=== PATIENT | female | born 1940 | race Caucasian/White ===

== ENCOUNTER 2016-06-11 05:55 | Inpatient (IN) | payer OTHER ==
--- NOTE | 2016-06-10 09:56 | HP ---
Satellite [facility] - Chief Complaint Chief Complaint: right knee pain - Past Medical History Allergies/Adverse Reactions: Allergies Allergy/AdvReac Type Severity Reaction Status Date / Time cephalexin monohydrate AdvReac Severe Hives Verified 06/03/16 10:20 [From Keflex] hydromorphone HCl AdvReac Severe Vomiting Verified 06/03/16 10:20 [From Dilaudid] - Current Medications Current Medications: Home Medications Medication Instructions Recorded Letrozole [Femara] 2.5 mg PO HS 04/22/15 Metformin HCl [Glucophage -] 500 mg PO BID 04/22/15 Warfarin Sodium [Coumadin] 5 mg PO HS 04/22/15 Furosemide 10 mg PO Q48H 06/03/16 Meclizine HCl 25 mg PO DAILY PRN 06/03/16 Metoprolol Succinate [Toprol Xl] 50 mg PO BID 06/03/16 Satellite Physical Exam - Physical Examination General Appearance: Well Nourished, Well Developed, Alert & Oriented x3 ENT: Clear Lung: Normal air movement Heart: Regular rate & rhythm Extremities: Other (right knee- + swelling, + ttp, decr rom, nvi xrays show severe tricompartmental djd) Neurological: Intact, Alert, Oriented Satellite Impression/Plan - Impression/Plan Impression: right knee djd Operative Procedure: right kareem tkr Date to be Performed: 06/11/16
[2016-06-11] MEDS ORDERED: TRANEXAMIC ACID 1000 MG/10 ML VIAL IVPUSH ONE (06:25)
[2016-06-11] MEDS ORDERED: GABAPENTIN 300 MG CAPSULE (FP) PO ONE (06:25)
[2016-06-11] MEDS ORDERED: CELECOXIB 200 MG CAPSULE PO ONE (06:25)
[2016-06-11] MEDS ORDERED: CEFAZOLIN 2 GM in DEXTROSE 5%-WATER - 50 ML IVPB ONE (06:25)
[2016-06-11] MEDS ORDERED: VANCOMYCIN 1,000 MG VIAL (RESTRICTED TO ID ONLY) ONE ×2 (07:02→07:33)
[2016-06-11 07:11] VITALS: BMI 36.6
[2016-06-11] MEDS ORDERED: DEXAMETHASONE SOD PHOSPHATE/PF 10 MG/ML SDV ONE (07:27)
[2016-06-11] MEDS ORDERED: MIDAZOLAM HCL 2 MG/2 ML SINGLE DOSE VIAL ONE (07:27)
[2016-06-11] MEDS ORDERED: ROPIVACAINE HCL 0.5% 30ML VIAL ONE (07:28)
[2016-06-11] MEDS ORDERED: SODIUM CHLORIDE 0.9% P/F 10 ML VIAL IJ ONE (07:28)
[2016-06-11] MEDS ORDERED: ePHEDrine SULFATE 50 MG/1 ML AMPULE ONE (07:57)
[2016-06-11] MEDS ORDERED: PROPOFOL 20 ML ONE ×5 (07:57)
[2016-06-11] MEDS ORDERED: SUCCINYLCHOLINE CHLORIDE 200 MG/10 ML VIAL ONE (07:58)
[2016-06-11] MEDS ORDERED: BUPIVACAINE HCL/PF 0.5% (5MG/ML) 10 ML VIAL ONE (08:03)
[2016-06-11 08:12] LABS: INR 1.12 (0.82-1.09); PROTHROMBIN TIME (PATIENT) 12.5 SEC (10.2-13.0)
[2016-06-11] MEDS ORDERED: ROPIVACAINE 0.2% 400ML 400 ML ML NR ONE (09:01)
[2016-06-11] MEDS ORDERED: oxyCODONE HCL 5 MG TABLET PO PRN (09:01)
[2016-06-11] MEDS ORDERED: ONDANSETRON 4 MG/2 ML VIAL IVPUSH PRN (09:01)
[2016-06-11] MEDS ORDERED: VANCOMYCIN 1,000 MG VIAL (RESTRICTED TO ID ONLY) IVPB ONE (09:53)
[2016-06-11] MEDS ORDERED: MECLIZINE HCL 25 MG TABLET (FP) PO PRN (10:39)
--- NOTE | 2016-06-11 10:43 | OP ---
Operative Note - Note: Operative Date: 06/11/16 (adam) Pre-Operative Diagnosis: right knee djd Operation: right kareem tkr Post-Operative Diagnosis: Same as Pre-op Surgeon: Efrain Shahid Cutter Apprentice Hand: Modesto Blair Anesthesiologist/HOSPITAL MEDICINE DIRECTOR: Pramod Allen Anesthesia: Spinal, Local Specimens Removed: bone fragments Estimated Blood Loss (mls): 50 (tourniquet) Operative Report Dictated: Yes
[2016-06-11] MEDS ORDERED: LACTATED RINGERS SOLUTION 1,000 ML IV SCH (10:45)
[2016-06-11] MEDS ORDERED: ACETAMINOPHEN 325 MG TABLET (FP) ONE (11:51)
[2016-06-11] MEDS: ACETAMINOPHEN 325 MG TABLET (FP) PO SCH ×3 (11:55→20:54)
[2016-06-11] MEDS ORDERED: FUROSEMIDE 20 MG TABLET (FP) PO SCH (12:00)
--- NOTE | 2016-06-11 13:45 | SPEC ---
DATE OF SURGERY: 06/11/2016 OPERATION: Right total knee replacement with robotic-assisted navigation (MAKOplasty). PREOPERATIVE DIAGNOSIS: Degenerative joint disease, right knee. POSTOPERATIVE DIAGNOSIS: Degenerative joint disease, right knee. SURGEON: Efrain Shahid M.D. FACILITY MAINTENANCE SUPERVISOR: Yamilet Patel ANESTHESIA: Regional and spinal. CLOSURE: A Triathlon knee system with a 6 femur, a 5 tibia, a 16 polyethylene, a 32 patella. A number 1 Vicryl fascia, 0 and 2-0 for subcutaneous, 3-0 Monocryl subcuticular with skin glue for skin, 4-0 undyed Vicryl for pin sites. ESTIMATED BLOOD LOSS: Negligible. TOURNIQUET TIME: Approximately 90 minutes. COMPLICATIONS: None CONDITION: To recovery room in stable condition. DESCRIPTION OF PROCEDURE: Patient was taken to the operating room June 11, 2016. Regional and spinal anesthesia were administered by the anesthesiologist. IV antibiotics and TXA were administered prophylactically prior to the case. A well-padded pneumatic tourniquet was placed on the right proximal thigh. The right lower extremity was prepped and draped in the usual sterile fashion. An approximately 12-cm midline incision centered over the patella was incised. Hemostasis was achieved with Bovie cautery. Sharp dissection was carried down to the level of the extensor mechanism the procedure. A medial parapatellar arthrotomy was then performed. The patella was inverted and the knee was flexed up to 90 degrees. Subperiosteal dissection was performed on the anteromedial proximal tibia until the knee was able to be brought forward. This was facilitated by taking the ACL, the PCL, and the medial and lateral menisci. A checkpoint was malleted into the medial femoral condyle and into the anteromedial proximal tibia. Through 2two small stab incisions in the mid femur and 2two in the mid tibia, 2two bicortical pins were drilled, achieving excellent height. Two of these pins were attached to the navigation arrays. The knee was then registered with the navigation device by rotating the hip to ascertain the center of rotation of the hip with points on both the medial and lateral malleoli and multiple points on both the femur and on the tibia. Excellent registration was confirmed by "popping the bubbles.". At this time, the osteophytes on the edges of the proximal tibia both medially and laterally, as well as on the medial lateral femoral condyles underneath the collateral ligaments were debrided. The knee was stressed in extension and in flexion to confirm good gaps. The virtual positions of the components were then optimized in order to have a balanced knee, both in extension and in 90 degrees of flexion. The sizes of the components were also optimized to get good coverage over both the tibia and the femur and to produce equal gaps in extension and flexion with the appropriate amount of external rotation of the femur, the appropriate amount of flexion of the femoral component and the appropriate slope on the tibial component. At this time, the robot was brought into the field and registered. The robot was used to cut the proximal tibia and to make all the cuts on the distal femur. The bone was then removed. A spacer block in extension and flexion was used to confirm equal balancing of the component in both extension and 90 degrees of flexion. The box for the posterior cruciate sacrificing component was then performed and a trial component on the femur and tibia was applied. The femoral component was clipped into place with the appropriate external rotation. This was confirmed by the navigation device, ensuring the appropriate position of the tibial component on the proximal tibia. The patella was calipered for thickness and osteotomized at the appropriate level. A lollipop was used to drill the three lugholes in the patella and then a trial component was applied. The knee was taken through a range of motion and found to have excellent tracking of the patella from full extension to full flexion, with good stability, varus/valgus throughout range of motion. The trial components were then removed. Before removing the tibial tray, the keyhole was made. The knee was then thoroughly irrigated with antibiotic irrigation. The real components were then cemented in, using modern generation cement techniques with antibiotic cement and pressurization. After the cement was hardened, the knee was thoroughly inspected to remove all excess cement. The real polyethylene component was then clipped into place. Again, range of motion, stability and tracking were found to be excellent throughout. The knee was then pulse antibiotic irrigated and dried. Vancomycin powder was placed into the knee. The checkpoints were removed. The medial parapatellar arthrotomy was then closed using number 1 Vicryl interrupted suture. The knee was again taken through range of motion and found to have no undue tension on the repair and good tracking throughout. The subcutaneous was closed with 0 and 2-0 Vicryl and 3-0 Monocryl subcuticular for skin with skin glue. The pins were removed in the femur and the tibia and pulse antibiotic irrigated and closed with 4-0 undyed Vicryl. Sterile Aquacel dressing followed by a Decker dressing was applied. The tourniquet was then deflated. One more dose of TXA was administered at the end of the case. The patient was awakened from anesthesia and transferred to the recovery room in stable condition. X-rays revealed good position of the components. There were no complications. Estimated blood loss was negligible. Total tourniquet time was approximately 90 minutes. Celine TUBBS/[id number]
[2016-06-11] MEDS: oxyCODONE HCL 5 MG TABLET PO PRN ×2 (14:16→18:30)
[2016-06-11] MEDS: GABAPENTIN 300 MG CAPSULE (FP) PO SCH ×2 (16:46→22:09)
[2016-06-11] MEDS: oxyCODONE HCL 10 MG SUSTAINED ACTING TABLET PO SCH ×2 (16:46→22:12)
[2016-06-11] MEDS: metFORMIN HCL 500 MG TABLET (FP) PO SCH (16:56)
[2016-06-11] MEDS ORDERED: INSULIN (NOVOLOG) ASPART 100 UNITS/ML 10ML VIAL ONE (17:01)
[2016-06-11] MEDS: INSULIN SLIDING SCALE (NOVOLOG) 1 VIAL SQ SCH ×2 (17:02→22:19)
[2016-06-11] MEDS: WARFARIN NA 5 MG TABLET (UD) PO SCH (18:31)
[2016-06-11] MEDS ORDERED: oxyCODONE HCL 5 MG TABLET PO ONE (19:30)
[2016-06-11] MEDS ORDERED: VANCOMYCIN 1,500 MG in DEXTROSE 5%-WATER - 500 ML IVPB ONE (20:00)
[2016-06-11] MEDS ORDERED: DEXAMETHASONE SOD PHOSPHATE 4 MG/1 ML VIAL IVPUSH PRN (21:14)
[2016-06-11] MEDS ORDERED: morphine SULFATE/PF 30 MG/30 ML *PCA* DISP.SYRIN PCA SCH (21:15)
[2016-06-11] MEDS: METOPROLOL SUCCINATE 50 MG TAB.SR.24H (FP) PO SCH (22:09)
[2016-06-11] MEDS: LETROZOLE 2.5 MG TABLET (FP) PO SCH (22:09)
[2016-06-11] MEDS: SENNOSIDES/DOCUSATE COMBO (SENNA PLUS) TABLET (UD) PO SCH (22:09)
[2016-06-12] MEDS: ACETAMINOPHEN 325 MG TABLET (FP) PO SCH ×4 (03:12→20:56)
[2016-06-12] MEDS: metFORMIN HCL 500 MG TABLET (FP) PO SCH ×2 (06:52→16:20)
[2016-06-12] MEDS: INSULIN SLIDING SCALE (NOVOLOG) 1 VIAL SQ SCH ×5 (06:53→21:16)
[2016-06-12] MEDS: LACTATED RINGERS SOLUTION 1,000 ML IV SCH ×2 (07:15→09:17)
--- NOTE | 2016-06-12 08:01 | PN ---
Progress Note (short form) - Note Progress Note: Ortho Pt seen and examined s/p right kareem tkr pod #1 Selected Entries 06/12/16 06:00 Temperature 97.4 F L Pulse Rate 70 Respiratory 20 Rate Blood Pressure 143/70 dressing c/d/i, calf soft, nt rom 0-30, nvi a/p PT dvt ppx pain control d/c home tomorrow if stable
[2016-06-12] MEDS: ASPIRIN 325 MG TABLET PO SCH ×2 (08:12→09:20)
[2016-06-12 08:41] LABS: MCH 30.4 pg (25.7-33.7); MCHC 34.2 g/dl (32.0-36.0); MEAN CELL VOLUME 88.9 fl (80-96); MEAN PLT VOLUME 8.5 fl (7.5-11.1); WHITE BLOOD COUNT 8.9 K/mm3 (4.0-10.0)
[2016-06-12 08:58] LABS: PLATELET COUNT 187 K/MM3 (134-434)
[2016-06-12 08:59] LABS: CALCIUM 8.8 mg/dl (8.4-10.2); CREATININE 0.5 mg/dl (0.6-1.3)
[2016-06-12] MEDS: GABAPENTIN 300 MG CAPSULE (FP) PO SCH ×2 (09:16→21:16)
[2016-06-12] MEDS: PANTOPRAZOLE 40 MG TABLET (FP) PO SCH (09:17)
[2016-06-12] MEDS: METOPROLOL SUCCINATE 50 MG TAB.SR.24H (FP) PO SCH ×2 (09:18→21:16)
[2016-06-12] MEDS: SENNOSIDES/DOCUSATE COMBO (SENNA PLUS) TABLET (UD) PO SCH ×2 (09:18→21:16)
[2016-06-12] MEDS: oxyCODONE HCL 10 MG SUSTAINED ACTING TABLET PO SCH ×2 (09:19→21:17)
[2016-06-12] MEDS: MULTIVITAMINS (DAILY MVI) TABLET (FP) PO SCH (09:23)
[2016-06-12] MEDS ORDERED: FUROSEMIDE 20 MG TABLET (FP) PO SCH (10:00)
[2016-06-12] MEDS: ONDANSETRON 4 MG/2 ML VIAL IVPB PRN (10:10)
[2016-06-12] MEDS ORDERED: INSULIN (NOVOLOG) ASPART 100 UNITS/ML 10ML VIAL ONE ×2 (11:19→16:16)
[2016-06-12] MEDS ORDERED: oxyCODONE HCL 5 MG TABLET PO PRN (17:00)
[2016-06-12] MEDS: oxyCODONE HCL 5 MG TABLET PO PRN ×2 (17:28→22:16)
[2016-06-12] MEDS: WARFARIN NA 5 MG TABLET (UD) PO SCH (17:29)
[2016-06-12] MEDS ORDERED: WARFARIN NA 5 MG TABLET (UD) PO SCH (18:00)
[2016-06-12] MEDS: LETROZOLE 2.5 MG TABLET (FP) PO SCH (21:16)
[2016-06-13] MEDS: ACETAMINOPHEN 325 MG TABLET (FP) PO SCH ×2 (03:50→08:29)
[2016-06-13] MEDS: INSULIN SLIDING SCALE (NOVOLOG) 1 VIAL SQ SCH ×2 (06:59→11:44)
[2016-06-13] MEDS: metFORMIN HCL 500 MG TABLET (FP) PO SCH (06:59)
[2016-06-13 07:42] VITALS: BP 127/77; PULSE 85; TEMP 97.7
[2016-06-13] MEDS: ONDANSETRON 4 MG/2 ML VIAL IVPB PRN (07:43)
--- NOTE | 2016-06-13 07:55 | PN ---
Progress Note (short form) - Note Progress Note: Ortho Pt seen and examined s/p right kareem tkr pod #2, c/o nausea Selected Entries 06/13/16 07:41 Temperature 97.7 F Pulse Rate 85 Respiratory 18 Rate Blood Pressure 127/77 Laboratory Tests 06/12/16 07:53 WBC 8.9 Hgb 12.3 D Hct 35.9 D Plt Count 187 dressing c/d/i, calf soft, nt rom 0-30, nvi a/p PT dvt ppx pain control d/c home today if nausea controlled
--- NOTE | 2016-06-13 07:56 | DS ---
Physical Examination Vital Signs: Vital Signs Temperature 97.7 F 06/13/16 07:41 Pulse Rate 85 06/13/16 07:41 Respiratory Rate 18 06/13/16 07:41 Blood Pressure 127/77 06/13/16 07:41 O2 Sat by Pulse Oximetry (%) 96 06/13/16 07:41 Labs: CBC, BMP 06/12/16 07:53 06/12/16 07:53 Discharge Summary Reason For Visit: OSTEOARTHRITIS Procedures: Principal: right kareem tkr Hospital Course: admitted for elective right kareem tkr, uneventful post-op, stable for d/c Condition: Good - Instructions Diet, Activity, Other Instructions: Post-op Instructions-Total Knee Replacement Call the office for a follow-up appointment in 1 week - [phone] Aspirin 325mg daily for 6 weeks. Pain medication was sent into your pharmacy. Apply Graduated Compression Stockings (TEDs) to both lower extremities- remove daily for hygiene ONLY Apply Sequential Compression Device (SCDs) to both Lower extremities remove for PT and hygiene ONLY Apply cold packs to affected area for 15 minutes every 2 hours. Physical Therapist will come to your home for the first 5 days. You will be set up with outpatient PT at your first post-operative visit. Patient may ambulate as tolerated-encourage self care (at least every 2-3 hours while awake) with walker or cane Maintain Aquacel (waterproof) dressing to operative wound (will be removed by surgeon at first office visit) Shower with Aquacel dressing in place-if Aquacel integrity compromised, remove and apply dry sterile dressing and notify Orthopedist. DO NOT SHOWER unless Orthopedists approves without Aquacel dressing CONTACT THE OFFICE FOR ANY CHANGE IN YOUR CONDITION (for example-fever greater than 102 degrees,excessive bleeding from operative site, purulent drainage, severe swelling or pain) GO TO THE EMERGENCY ROOM IF THERE IS A MEDICAL EMERGENCY Knee Precautions: * Keep a rolled towel under affected heel while in bed or chair (to keep knee in extension) * Keep affected leg elevated except during mealtimes * DO NOT PLACE PILLOW UNDER AFFECTED KNEE * If you have any questions, please do not hesitate to call the office - . Referrals: Efrain Shahid MD [Staff Physician] - Disposition: VNS/HOME HEALTH CARE - Home Medications Comprehensive Discharge Medication List: Ambulatory Orders Letrozole [Femara] 2.5 mg PO HS 04/22/15 Metformin HCl [Glucophage -] 500 mg PO BID 04/22/15 Warfarin Sodium [Coumadin] 5 mg PO HS 04/22/15 Furosemide 10 mg PO Q48H 06/03/16 Meclizine HCl 25 mg PO DAILY PRN 06/03/16 Metoprolol Succinate [Toprol Xl] 50 mg PO BID 06/03/16 Oxycodone HCl/Acetaminophen [Percocet 5-325 mg Tablet -] 1 - 2 tab PO Q6H #50 tab MDD 8 06/11/16
[2016-06-13 08:19] LABS: MCH 30.6 pg (25.7-33.7); MEAN CELL VOLUME 90.2 fl (80-96); MEAN PLT VOLUME 8.6 fl (7.5-11.1); PLATELET COUNT 197 K/MM3 (134-434); RDW 12.9 % (11.6-15.6); WHITE BLOOD COUNT 10.6 K/mm3 (4.0-10.0)
[2016-06-13] MEDS: METOPROLOL SUCCINATE 50 MG TAB.SR.24H (FP) PO SCH (09:19)
[2016-06-13] MEDS: PANTOPRAZOLE 40 MG TABLET (FP) PO SCH (09:19)
[2016-06-13] MEDS: MULTIVITAMINS (DAILY MVI) TABLET (FP) PO SCH (09:19)
[2016-06-13] MEDS: GABAPENTIN 300 MG CAPSULE (FP) PO SCH (09:19)
[2016-06-13] MEDS: ASPIRIN 325 MG TABLET PO SCH (09:19)
[2016-06-13] MEDS: SENNOSIDES/DOCUSATE COMBO (SENNA PLUS) TABLET (UD) PO SCH (09:20)
[2016-06-13] MEDS: LACTATED RINGERS SOLUTION 1,000 ML IV SCH (09:26)
[2016-06-13] MEDS: oxyCODONE HCL 10 MG SUSTAINED ACTING TABLET PO SCH (09:26)
--- NOTE | 2016-06-13 10:32 | PN ---
Progress Note (short form) - Note Progress Note: S: pt. sitting in chair. c/o nausea. O: Vas 4-5/10 A/P: Pod#2 s/p right tkr with adductor canal catheter 1. PONV - continue with zofran, will d/c gabapentin. Narcotic have been stopped (pain controlled) 2. D/C planning per surgeon
--- NOTE | 2016-06-13 10:36 | PN ---
Progress Note (short form) - Note Progress Note: Addendum: Adductor canal cath pulled. tip intact. no complications
--- NOTE | 2016-08-20 16:09 | PATH ---
Surgical Pathology Report Patient Name: SOLEDAD CARPIO Med. Rec. #: [id number] /Age/Gender: 1940 (Age: 75) / F Account: [id number] Location: [facility] MED-SURG Taken: 06/11/2016 Received: 06/11/2016 Reported: 08/20/2016 Physicians: Efrain Shahid M.D. Specimen(s) Received RIGHT KNEE BONE Clinical History Right knee osteoarthritis Final Diagnosis KNEE, RIGHT, BONE AND TISSUE, TOTAL KNEE REPLACEMENT: DEGENERATIVE JOINT DISEASE. Electronically Signed Radha Vera M.D. Gross Description Received in formalin labeled "right knee bone and tissue," is an 11.5 x 10.0 x 2.0 cm aggregate of multiple irregular portions of bone and soft tissue. The tibial plateau measures 7.3 x 5.5 x 1.6 cm. There is a 2.3 cm in greatest dimension area of eburnation present. The remaining articular surfaces are krueger-yellow and focally granular. The underlying trabecular bone is yellow and hard. Fuse Spooler sections are submitted in one cassette, following decalcification. /06/12/201606/12/2016
== END 2016-06-13 12:40 | disposition home health service (06) | DRG 470 ==
LOC: FM/S 05:55
PROVIDERS: ADMIT Orthopaedic Surgery; ATTEND Orthopaedic Surgery
PROC: 8E0Y0CZ Robotic Assisted Procedure of Lower Extremity, Open Approach (ICD-10-PCS; 2016-06-11)
PROC: 0SRC0J9 Replacement of Right Knee Joint with Synthetic Substitute, Cemented, Open Approach (ICD-10-PCS; principal; 2016-06-11 08:55)
DX: M17.11 Unilateral primary osteoarthritis, right knee (principal); E11.9 Type 2 diabetes mellitus without complications; Z79.84 Long term (current) use of oral hypoglycemic drugs; I48.91 Unspecified atrial fibrillation; Z79.01 Long term (current) use of anticoagulants; H81.10 Benign paroxysmal vertigo, unspecified ear; Z85.3 Personal history of malignant neoplasm of breast
CPT/HCPCS: 36415; 73560-TC-RT; 80048; 85027; 85610; 88304-TC; 88311-TC; 94760; 97116-GP; 97162-PG

== ENCOUNTER 2017-03-12 10:32 | Emergency (ER) | payer OTHER ==
[2017-03-12 10:37] VITALS: BMI 35.7
--- NOTE | 2017-03-12 12:06 | PDOC ---
History of Present Illness - General History Source: Patient, Other (Records from Optho visit this morning) Exam Limitations: No Limitations - History of Present Illness Initial Comments: 03/12/17 12:54 The patient is a 76 year old female with a significant PMH of AFIB, diabetes, and hepatitis C who presents to the emergency department with double vision beginning at approximately 6PM yesterday. 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 She reports that her Opthamologist requested she be sent to the ED for a head CT to rule out other conditions or complications. The patient denies chest pain, shortness of breath, headache and dizziness. Denies fever, chills, nausea, vomit, diarrhea and constipation. Denies dysuria, frequency, urgency and hematuria. Allergies: Cephalexin monohydrate, Hydromorphone HCl Past surgical history: None reported. Social history: Current some day smoker. No reported alcohol or drug use. PCP: Dr. Forrester Opthamologist: Dr. July Butler <Rodo Duvall - Last Filed: 03/12/17 12:54> <Jones Reyes - Last Filed: 03/12/17 14:05> - General Chief Complaint: Eye Problem Stated Complaint: EYE COMPLICATION (PCP SENT) Time Seen by Provider: 03/12/17 12:03 Past History <Rodo Duvall - Last Filed: 03/12/17 12:54> - Past Medical History Anemia: No Asthma: No Cancer: Yes (BREAST CA) Cardiac Disorders: Yes (a fib) CVA: No COPD: No CHF: No Dementia: No Diabetes: Yes Disorders: No (HX KIDNEY STONE-PASSED SELF) HTN: No Hypercholesterolemia: No Liver Disease: Yes (HEP C) Seizures: No Thyroid Disease: No - Surgical History Abdominal Surgery: Yes (UMBILICAL HERNIA REPAIR, MANY YEARS AGO) Appendectomy: No Cardiac Surgery: No Cholecystectomy: No Lung Surgery: No Neurologic Surgery: No Orthopedic Surgery: No - Suicide/Smoking/Psychosocial Hx Smoking History: Current some day smoker Have you smoked in the past 12 months: No Number of Cigarettes Smoked Daily: 2 If you are a former smoker, when did you quit?: 1 year Information on smoking cessation initiated: No Hx Alcohol Use: No Drug/Substance Use Hx: No Substance Use Type: None Hx Substance Use Treatment: No <Jones Reyes - Last Filed: 03/12/17 14:05> - Past Medical History Allergies/Adverse Reactions: Allergies Allergy/AdvReac Type Severity Reaction Status Date / Time cephalexin monohydrate AdvReac Severe Hives Verified 03/12/17 10:37 [From Keflex] hydromorphone HCl AdvReac Severe Vomiting Verified 03/12/17 10:37 [From Dilaudid] Home Medications: Ambulatory Orders Letrozole [Femara] 2.5 mg PO HS 04/22/15 Metformin HCl [Glucophage -] 500 mg PO BID 04/22/15 Warfarin Sodium [Coumadin] 5 mg PO HS 04/22/15 Meclizine HCl 25 mg PO DAILY PRN 06/03/16 Metoprolol Succinate [Toprol Xl] 50 mg PO BID 06/03/16 Tobramycin/Dexamethasone [Tobradex Eye Drops] 1 drop OD QID 03/12/17 Review of Systems - Review of Systems Able to Perform ROS?: Yes Comments:: 03/12/17 12:54 GENERAL/CONSTITUTIONAL: No fever or chills. No weakness. HEAD, EYES, EARS, NOSE AND THROAT: (+) Double vision. No ear pain or discharge. No sore throat. CARDIOVASCULAR: No chest pain or shortness of breath. RESPIRATORY: No cough, wheezing, or hemoptysis. GASTROINTESTINAL: No nausea, vomiting, diarrhea or constipation. GENITOURINARY: No dysuria, frequency, or change in urination. MUSCULOSKELETAL: No joint or muscle swelling or pain. No neck or back pain. SKIN: No rash NEUROLOGIC: No headache, vertigo, loss of consciousness, or change in strength. ENDOCRINE: No increased thirst. No abnormal weight change. HEMATOLOGIC/LYMPHATIC: No anemia, easy bleeding, or history of blood clots. ALLERGIC/IMMUNOLOGIC: No hives or skin allergy. <Rodo Duvall - Last Filed: 03/12/17 12:54> *Physical Exam - Vital Signs Last Vital Signs Temp Pulse Resp BP Pulse Ox 97.7 F 57 L 20 134/64 97 03/12/17 10:33 03/12/17 10:33 03/12/17 10:33 03/12/17 10:33 03/12/17 10:33 - Physical Exam Comments: 03/12/17 12:54 GENERAL: Awake, alert, and fully oriented, in no acute distress HEAD: No signs of trauma EYES: PERRLA, EOMI, sclera anicteric, conjunctiva clear ENT: Auricles normal inspection, hearing grossly normal, nares patent, oropharynx clear without exudates. Moist mucosa NECK: Normal ROM, supple, no lymphadenopathy, JVD, or masses LUNGS: Breath sounds equal, clear to auscultation bilaterally. No wheezes, and no crackles HEART: Regular rate and rhythm, normal S1 and S2, no murmurs, rubs or gallops ABDOMEN: Soft, nontender, normoactive bowel sounds. No guarding, no rebound. No masses EXTREMITIES: Normal range of motion, no edema. No clubbing or cyanosis. No cords, erythema, or tenderness NEUROLOGICAL: (+) Diplopia. Cranial nerves II-V and VII-XII grossly intact. Normal speech, normal gait SKIN: Warm, Dry, normal turgor, no rashes or lesions noted. <Rodo Duvall - Last Filed: 03/12/17 12:54> - Vital Signs Last Vital Signs Temp Pulse Resp BP Pulse Ox 97.7 F 57 L 20 134/64 97 03/12/17 10:33 03/12/17 10:33 03/12/17 10:33 03/12/17 10:33 03/12/17 10:33 <Jones Reyes - Last Filed: 03/12/17 14:05> *DC/Admit/Observation/Transfer - Attestations Scribe Attestion: 03/12/17 12:55 Documentation prepared by Rodo Duvall, acting as medical sales specialist for Jones Reyes DO. <Rodo Duvall - Last Filed: 03/12/17 12:54> - Attestations Physician Attestion: 03/12/17 12:04 I, Dr. Jones Reyes, attest that this document has been prepared under my direction and personally reviewed by me in its entirety. I further attest, that it accurately reflects all work, treatment, procedures and medical decision -making performed by me. <Jones Reyes - Last Filed: 03/12/17 14:05> Diagnosis at time of Disposition: Diplopia Sixth nerve palsy Qualifiers: Laterality: right Qualified Code(s): H49.21 - Sixth [abducent] nerve palsy, right eye - Discharge Dispostion Disposition: HOME Condition at time of disposition: Unchanged/Unknown - Referrals Referrals: Efrain Forrester MD [Primary Care Provider] - Angel Trent MD [Staff Physician] - - Patient Instructions Additional Instructions: Mrs Rothman- Your CT Scan was essentially normal and does not give us a reason for the sixth nerve palsy that is causing your double vision. Please follow up with Neurology. Return to us if worse or new symptoms occur. Follow your ophthalomologist's instructions. Best- Dr. Jones Reyes - Post Discharge Activity
--- NOTE | 2017-03-12 12:20 | PDOC ---
History of Present Illness - General Chief Complaint: Eye Problem Stated Complaint: EYE COMPLICATION (PCP SENT) Past History - Past Medical History Allergies/Adverse Reactions: Allergies Allergy/AdvReac Type Severity Reaction Status Date / Time cephalexin monohydrate AdvReac Severe Hives Verified 03/12/17 10:37 [From Keflex] hydromorphone HCl AdvReac Severe Vomiting Verified 03/12/17 10:37 [From Dilaudid] Home Medications: Ambulatory Orders Letrozole [Femara] 2.5 mg PO HS 04/22/15 Metformin HCl [Glucophage -] 500 mg PO BID 04/22/15 Warfarin Sodium [Coumadin] 5 mg PO HS 04/22/15 Furosemide 10 mg PO Q48H 06/03/16 Meclizine HCl 25 mg PO DAILY PRN 06/03/16 Metoprolol Succinate [Toprol Xl] 50 mg PO BID 06/03/16 Oxycodone HCl/Acetaminophen [Percocet 5-325 mg Tablet -] 1 - 2 tab PO Q6H #50 tab MDD 8 06/11/16 Anemia: No Asthma: No Cancer: Yes (BREAST CA) Cardiac Disorders: Yes (a fib) CVA: No COPD: No CHF: No Dementia: No Diabetes: Yes Disorders: No (HX KIDNEY STONE-PASSED SELF) HTN: No Hypercholesterolemia: No Liver Disease: Yes (HEP C) Seizures: No Thyroid Disease: No - Surgical History Abdominal Surgery: Yes (UMBILICAL HERNIA REPAIR, MANY YEARS AGO) Appendectomy: No Cardiac Surgery: No Cholecystectomy: No Lung Surgery: No Neurologic Surgery: No Orthopedic Surgery: No - Suicide/Smoking/Psychosocial Hx Smoking History: Current some day smoker Have you smoked in the past 12 months: No Number of Cigarettes Smoked Daily: 2 If you are a former smoker, when did you quit?: 1 year Information on smoking cessation initiated: No Hx Alcohol Use: No Drug/Substance Use Hx: No Substance Use Type: None Hx Substance Use Treatment: No *Physical Exam - Vital Signs Last Vital Signs Temp Pulse Resp BP Pulse Ox 97.7 F 57 L 20 134/64 97 03/12/17 10:33 03/12/17 10:33 03/12/17 10:33 03/12/17 10:33 03/12/17 10:33 *DC/Admit/Observation/Transfer - Referrals Referrals: Efrain Forrester MD [Primary Care Provider] - - Patient Instructions - Post Discharge Activity
[2017-03-12 14:09] VITALS: BP 111/65; PULSE 60; TEMP 97.8
== END 2017-03-12 14:19 | disposition home or self-care (01) ==
LOC: JER 10:32
DX: H49.21 Sixth [abducent] nerve palsy, right eye (principal); I48.91 Unspecified atrial fibrillation; E11.9 Type 2 diabetes mellitus without complications; B19.20 Unspecified viral hepatitis C without hepatic coma
CPT/HCPCS: 70450-TC; 99282-25

== ENCOUNTER 2021-08-14 14:34 | Inpatient (IN) | payer OTHER ==
[2021-08-14] MEDS ORDERED: ACETAMINOPHEN 1000 MG/100 ML BAG IVPB ONE (15:57)
[2021-08-14] MEDS ORDERED: SODIUM CHLORIDE 0.9% 500 ML INFUS.BAG IV ONE ×2 (15:57→17:31)
[2021-08-14] MEDS ORDERED: ACETAMINOPHEN INJECTION 100 ML IVPB ONE (16:00)
[2021-08-14 16:23] LABS: BASO % 0.9 % (0-2.0); HEMATOCRIT 44.7 % (32.4-45.2); HEMOGLOBIN 14.6 GM/dL (10.7-15.3); LYMPH % 6.7 % (8-40); MCH 29.6 pg (25.7-33.7); MCHC 32.6 g/dl (32.0-36.0); MEAN CELL VOLUME 90.6 fl (80-96); MEAN PLT VOLUME 7.4 fl (7.5-11.1); MONO % 9.4 % (3.8-10.2); PLATELET COUNT 580 10^3/uL (134-434); RBC 4.94 M/mm3 (3.60-5.2); RDW 14.2 % (11.6-15.6); WHITE BLOOD COUNT 17.6 K/mm3 (4.0-10.0)
[2021-08-14 16:28] LABS: VENOUS PCO2 37.3 mmHg (38-52); VENOUS PH 7.364 (7.310-7.410)
[2021-08-14 16:36] LABS: ACTIVATED PTT 41.6 SECONDS (25.2-36.5); INR 1.78 (0.83-1.09); PROTHROMBIN TIME (PATIENT) 20.6 SEC (9.7-13.0)
[2021-08-14 17:09] LABS: ALK PHOS 94 U/L (45-117); ANION GAP 14 MMOL/L (8-16); BILIRUBIN,TOTAL 2.8 mg/dL (0.2-1); CHLORIDE 99 mmol/L (98-107); CO2 20 mmol/L (21-32); GLUCOSE,RANDOM 338 mg/dL (74-106); LACTIC ACID 4.9 mmol/L (0.4-2.0); SGOT/AST 61 U/L (15-37); SGPT/ALT 36 U/L (13-61); SODIUM 133 mmol/L (136-145); TOT PROT 7.1 g/dl (6.4-8.2)
[2021-08-14 17:29] LABS: EPI CELLS 10 /uL (0-25.1); HYALINE CASTS 18 /uL (0-3.1); URINE APPEARANCE CLEAR; URINE BACTERIA 13 /uL (0-1359); URINE BILIRUBIN 1+ (NEGATIVE); URINE COLOR ORANGE; URINE GLUCOSE (UA) 3+ (NEGATIVE); URINE KETONE 1+ (NEGATIVE); URINE LEUK ESTERASE NEGATIVE (NEGATIVE); URINE NITRITE NEGATIVE (NEGATIVE); URINE PROTEIN 3+ (NEGATIVE); URINE RBC 11 /uL (0-23.9); URINE WBC 14 /uL (0-25.8)
[2021-08-14] MEDS ORDERED: LIDOCAINE 5% TOPICAL PATCH TP ONE (17:32)
[2021-08-14] MEDS ORDERED: LIDOCAINE 5% TOPICAL PATCH ONE (17:51)
[2021-08-14] MEDS ORDERED: morphine CARPU-JECT 4 MG/1 ML DISP.SYRIN IVPUSH ONE (18:04)
[2021-08-14] MEDS ORDERED: morphine SULFATE 4 MG/ML VIAL ONE ×2 (18:07→23:33)
[2021-08-14 19:34] LABS: LACTIC ACID 2.8 mmol/L (0.4-2.0)
[2021-08-14 19:36] LABS: CALCIUM 8.5 mg/dL (8.5-10.1)
[2021-08-14 19:37] LABS: BLOOD UREA NITROGEN 21.4 mg/dL (7-18)
[2021-08-14 19:40] LABS: CREATININE 0.7 mg/dL (0.55-1.3)
[2021-08-14] MEDS ORDERED: ENOXAPARIN NA (PORCINE) 40 MG/0.4 ML DISP.SYRIN SQ ONE (22:41)
[2021-08-14] MEDS ORDERED: ENOXAPARIN NA (PORCINE) 100 MG/1 ML DISP.SYRIN SQ ONE (23:33)
[2021-08-14] MEDS ORDERED: ENOXAPARIN NA (PORCINE) 30 MG/0.3 ML DISP.SYRIN SQ ONE (23:34)
[2021-08-14] MEDS ORDERED: morphine SULFATE 4 MG/ML VIAL IVPUSH ONE (23:45)
[2021-08-15] MEDS ORDERED: ACETAMINOPHEN 325 MG TABLET (FP) PO PRN (01:17)
[2021-08-15] MEDS: LIDOCAINE PATCH REMOVAL MC SCH ×2 (02:43→21:43)
[2021-08-15] MEDS: ATORVASTATIN CA 40 MG TABLET (FP) PO SCH ×2 (02:43→21:43)
[2021-08-15] MEDS: METOPROLOL TARTRATE 50 MG TABLET (FP) PO SCH ×3 (02:43→21:48)
[2021-08-15] MEDS: INSULIN SLIDING SCALE (NOVOLOG) 1 VIAL SQ SCH ×4 (06:24→21:48)
[2021-08-15 07:35] LABS: BASO % 0.7 % (0-2.0); EOS % 0.1 % (0-4.5); HEMATOCRIT 36.1 % (32.4-45.2); HEMOGLOBIN 12.1 GM/dL (10.7-15.3); LYMPH % 12.5 % (8-40); MCH 30.3 pg (25.7-33.7); MCHC 33.4 g/dl (32.0-36.0); MEAN CELL VOLUME 90.7 fl (80-96); MEAN PLT VOLUME 7.5 fl (7.5-11.1); MONO % 10.1 % (3.8-10.2); NEUT % 76.6 % (42.8-82.8); PLATELET COUNT 520 10^3/uL (134-434); RBC 3.98 M/mm3 (3.60-5.2); WHITE BLOOD COUNT 14.4 K/mm3 (4.0-10.0)
[2021-08-15 07:53] LABS: CHLORIDE 101 mmol/L (98-107); SODIUM 135 mmol/L (136-145)
[2021-08-15] MEDS ORDERED: HEPARIN NA (PORCINE) 5,000 UNITS/ML 1ML VIAL IVPUSH PRN ×2 (07:55)
[2021-08-15] MEDS ORDERED: HEPARIN INFUSION - 25,000 UNITS/500 ML INFUS.BAG IVPB SCH (08:00)
[2021-08-15 08:03] LABS: CALCIUM 8.8 mg/dL (8.5-10.1)
[2021-08-15 08:04] LABS: ALBUMIN 2.5 g/dl (3.4-5.0); ANION GAP 8 MMOL/L (8-16); BLOOD UREA NITROGEN 36.7 mg/dL (7-18); CO2 26 mmol/L (21-32); GLUCOSE,RANDOM 371 mg/dL (74-106); MAGNESIUM 2.3 mg/dL (1.8-2.4)
[2021-08-15 08:06] LABS: PHOSPHOROUS 2.8 mg/dL (2.5-4.9); SGOT/AST 24 U/L (15-37)
[2021-08-15 08:07] LABS: CHOLESTEROL 131 mg/dL (50-200); CREATININE 0.9 mg/dL (0.55-1.3); LDL CHOLESTEROL (ONLY SJRH) 77 mg/dL (5-100); SGPT/ALT 26 U/L (13-61); TRIGLYCERIDES 155 mg/dL (0-150)
[2021-08-15 08:08] LABS: BILIRUBIN,TOTAL 1.6 mg/dL (0.2-1); TOT PROT 5.6 g/dl (6.4-8.2)
[2021-08-15 08:09] LABS: ALK PHOS 70 U/L (45-117)
[2021-08-15 08:10] LABS: HDL CHOLESTEROL 30 mg/dL (40-60)
[2021-08-15 08:11] LABS: INR 1.67 (0.83-1.09); PROTHROMBIN TIME (PATIENT) 19.3 SEC (9.7-13.0)
[2021-08-15] MEDS ORDERED: AZTREONAM 2 GM in DEXTROSE 5%-WATER 100 ML IVPB ONE (08:15)
[2021-08-15] MEDS ORDERED: AZTREONAM 2 GM VIAL (RESTRICTED TO ID) ONE (08:39)
[2021-08-15] MEDS ORDERED: DEXTROSE 5%-WATER 100 ML IVPB ONE (08:40)
[2021-08-15] MEDS ORDERED: VANCOMYCIN PREMIX 1.5 GM 1,500 MG/300 ML BAG IVPB ONE (09:05)
[2021-08-15] MEDS ORDERED: AZTREONAM 2 GM in DEXTROSE 5%-WATER 100 ML IVPB SCH (10:00)
[2021-08-15] MEDS ORDERED: ENOXAPARIN NA (PORCINE) 80 MG/0.8 ML DISP.SYRIN SQ SCH (10:00)
[2021-08-15] MEDS ORDERED: AZTREONAM 1 GM VIAL (RESTRICTED TO ID) IVPB SCH (10:00)
[2021-08-15] MEDS ORDERED: ENOXAPARIN NA (PORCINE) 40 MG/0.4 ML DISP.SYRIN SQ SCH (10:00)
[2021-08-15] MEDS ORDERED: WARFARIN NA 5 MG TABLET PO SCH (18:00)
[2021-08-15] MEDS ORDERED: WARFARIN NA PO SCH (22:00)
[2021-08-15] MEDS: VANCOMYCIN/WATER 1250 MG 1,250 MG/250 ML BAG IVPB SCH (22:01)
[2021-08-15] MEDS: LETROZOLE 2.5 MG TABLET (FP) PO SCH (22:13)
[2021-08-16] MEDS ORDERED: morphine SULFATE 4 MG/ML VIAL IVPUSH ONE (04:58)
[2021-08-16] MEDS: INSULIN SLIDING SCALE (NOVOLOG) 1 VIAL SQ SCH ×4 (06:24→22:59)
[2021-08-16 07:51] LABS: CALCIUM 8.5 mg/dL (8.5-10.1)
[2021-08-16 07:52] LABS: ALBUMIN 2.4 g/dl (3.4-5.0); BLOOD UREA NITROGEN 39.3 mg/dL (7-18); CREATININE 0.7 mg/dL (0.55-1.3)
[2021-08-16 07:54] LABS: BILIRUBIN,TOTAL 1.1 mg/dL (0.2-1); TOT PROT 5.4 g/dl (6.4-8.2)
[2021-08-16] MEDS ORDERED: ENOXAPARIN NA (PORCINE) 80 MG/0.8 ML DISP.SYRIN SQ SCH (10:00)
[2021-08-16] MEDS: METOPROLOL TARTRATE 50 MG TABLET (FP) PO SCH ×2 (10:19→22:44)
[2021-08-16] MEDS: VANCOMYCIN/WATER 1250 MG 1,250 MG/250 ML BAG IVPB SCH ×2 (10:22→22:42)
[2021-08-16] MEDS: ATORVASTATIN CA 40 MG TABLET (FP) PO SCH (22:44)
[2021-08-16] MEDS: LETROZOLE 2.5 MG TABLET (FP) PO SCH (22:44)
[2021-08-16] MEDS: NYSTATIN POWDER 100,000 UNITS/GM - 15 GM TOPICAL POWDER TP SCH (22:45)
[2021-08-17] MEDS: INSULIN SLIDING SCALE (NOVOLOG) 1 VIAL SQ SCH ×4 (06:27→21:27)
[2021-08-17] MEDS: METOPROLOL TARTRATE 50 MG TABLET (FP) PO SCH ×2 (09:21→21:17)
[2021-08-17] MEDS: NYSTATIN POWDER 100,000 UNITS/GM - 15 GM TOPICAL POWDER TP SCH ×2 (09:22→21:17)
[2021-08-17 09:24] LABS: BASO % 0.7 % (0-2.0); EOS % 4.6 % (0-4.5); HEMATOCRIT 34.8 % (32.4-45.2); HEMOGLOBIN 11.3 GM/dL (10.7-15.3); LYMPH % 20.6 % (8-40); MCH 29.8 pg (25.7-33.7); MCHC 32.5 g/dl (32.0-36.0); MEAN CELL VOLUME 91.7 fl (80-96); MEAN PLT VOLUME 7.9 fl (7.5-11.1); MONO % 15.2 % (3.8-10.2); NEUT % 58.9 % (42.8-82.8); PLATELET COUNT 489 10^3/uL (134-434); RDW 14.1 % (11.6-15.6); WHITE BLOOD COUNT 11.9 K/mm3 (4.0-10.0)
[2021-08-17 09:48] LABS: ALBUMIN 2.3 g/dl (3.4-5.0); BLOOD UREA NITROGEN 27.4 mg/dL (7-18)
[2021-08-17 09:50] LABS: BILIRUBIN,TOTAL 1.3 mg/dL (0.2-1); CALCIUM 8.2 mg/dL (8.5-10.1); TOT PROT 5.4 g/dl (6.4-8.2)
[2021-08-17 09:51] LABS: CREATININE 0.5 mg/dL (0.55-1.3); MAGNESIUM 2.5 mg/dL (1.8-2.4)
[2021-08-17] MEDS: VANCOMYCIN/WATER 1250 MG 1,250 MG/250 ML BAG IVPB SCH ×2 (13:10→21:18)
[2021-08-17 14:03] LABS: HEMATOCRIT 33.5 % (32.4-45.2); HEMOGLOBIN 11.2 GM/dL (10.7-15.3); MCH 30.1 pg (25.7-33.7); MCHC 33.4 g/dl (32.0-36.0); MEAN CELL VOLUME 90.3 fl (80-96); MEAN PLT VOLUME 7.8 fl (7.5-11.1); PLATELET COUNT 481 10^3/uL (134-434); RBC 3.71 M/mm3 (3.60-5.2); RDW 14.1 % (11.6-15.6); WHITE BLOOD COUNT 10.7 K/mm3 (4.0-10.0)
[2021-08-17] MEDS: ATORVASTATIN CA 40 MG TABLET (FP) PO SCH (21:17)
[2021-08-17] MEDS: LETROZOLE 2.5 MG TABLET (FP) PO SCH (21:17)
[2021-08-18] MEDS: INSULIN SLIDING SCALE (NOVOLOG) 1 VIAL SQ SCH ×4 (06:28→22:23)
[2021-08-18 07:34] LABS: BASO % 0.5 % (0-2.0); EOS % 4.1 % (0-4.5); HEMATOCRIT 34.7 % (32.4-45.2); HEMOGLOBIN 11.8 GM/dL (10.7-15.3); LYMPH % 18.5 % (8-40); MCH 30.7 pg (25.7-33.7); MEAN CELL VOLUME 90.3 fl (80-96); MEAN PLT VOLUME 7.6 fl (7.5-11.1); MONO % 16.4 % (3.8-10.2); NEUT % 60.5 % (42.8-82.8); PLATELET COUNT 481 10^3/uL (134-434); RBC 3.84 M/mm3 (3.60-5.2); RDW 13.7 % (11.6-15.6); WHITE BLOOD COUNT 10.8 K/mm3 (4.0-10.0)
[2021-08-18 07:50] LABS: CALCIUM 8.3 mg/dL (8.5-10.1)
[2021-08-18 07:51] LABS: ALBUMIN 2.1 g/dl (3.4-5.0); BLOOD UREA NITROGEN 17.2 mg/dL (7-18); MAGNESIUM 2.2 mg/dL (1.8-2.4)
[2021-08-18 07:54] LABS: CREATININE 0.4 mg/dL (0.55-1.3)
[2021-08-18 07:55] LABS: BILIRUBIN,TOTAL 1.2 mg/dL (0.2-1); TOT PROT 5.2 g/dl (6.4-8.2)
[2021-08-18] MEDS: METOPROLOL TARTRATE 50 MG TABLET (FP) PO SCH ×2 (09:37→21:06)
[2021-08-18] MEDS: NYSTATIN POWDER 100,000 UNITS/GM - 15 GM TOPICAL POWDER TP SCH ×2 (09:37→22:23)
[2021-08-18] MEDS: VANCOMYCIN/WATER 1250 MG 1,250 MG/250 ML BAG IVPB SCH ×2 (09:37→21:07)
[2021-08-18] MEDS: ACETAMINOPHEN 1000 MG/100 ML BAG IVPB SCH ×2 (12:20→20:00)
[2021-08-18] MEDS: POLYETHYLENE GLYCOL (HEALTHYLAX) 3350 17 GM PACKET PO SCH (12:20)
[2021-08-18] MEDS: oxyCODONE HCL 10 MG SUSTAINED ACTING TABLET PO SCH ×2 (12:21→21:05)
[2021-08-18] MEDS: APIXABAN 5 MG TABLET PO SCH ×2 (13:29→21:10)
[2021-08-18] MEDS ORDERED: WARFARIN NA 7.5 MG TABLET PO ONE (18:00)
[2021-08-18] MEDS: ATORVASTATIN CA 40 MG TABLET (FP) PO SCH (21:06)
[2021-08-18] MEDS: LETROZOLE 2.5 MG TABLET (FP) PO SCH (21:10)
[2021-08-19] MEDS: ACETAMINOPHEN 1000 MG/100 ML BAG IVPB SCH (03:34)
[2021-08-19] MEDS: INSULIN SLIDING SCALE (NOVOLOG) 1 VIAL SQ SCH ×4 (06:03→23:42)
[2021-08-19 07:52] LABS: HEMOGLOBIN 11.9 GM/dL (10.7-15.3); MCH 30.8 pg (25.7-33.7); MEAN CELL VOLUME 90.6 fl (80-96); MEAN PLT VOLUME 7.6 fl (7.5-11.1); PLATELET COUNT 511 10^3/uL (134-434); RBC 3.87 M/mm3 (3.60-5.2); RDW 14.1 % (11.6-15.6); WHITE BLOOD COUNT 11.1 K/mm3 (4.0-10.0)
[2021-08-19 08:27] LABS: ALBUMIN 2.3 g/dl (3.4-5.0); CALCIUM 8.9 mg/dL (8.5-10.1)
[2021-08-19 08:28] LABS: BLOOD UREA NITROGEN 19.7 mg/dL (7-18)
[2021-08-19 08:30] LABS: CREATININE 0.5 mg/dL (0.55-1.3)
[2021-08-19 08:31] LABS: TOT PROT 5.6 g/dl (6.4-8.2)
[2021-08-19 08:32] LABS: BILIRUBIN,TOTAL 1.3 mg/dL (0.2-1)
[2021-08-19] MEDS: NYSTATIN POWDER 100,000 UNITS/GM - 15 GM TOPICAL POWDER TP SCH ×2 (09:38→22:30)
[2021-08-19] MEDS: oxyCODONE HCL 10 MG SUSTAINED ACTING TABLET PO SCH ×2 (09:38→22:28)
[2021-08-19] MEDS: METOPROLOL TARTRATE 50 MG TABLET (FP) PO SCH ×2 (09:39→22:30)
[2021-08-19] MEDS: POLYETHYLENE GLYCOL (HEALTHYLAX) 3350 17 GM PACKET PO SCH (09:39)
[2021-08-19] MEDS: APIXABAN 5 MG TABLET PO SCH ×2 (09:39→22:28)
[2021-08-19] MEDS: VANCOMYCIN/WATER 1250 MG 1,250 MG/250 ML BAG IVPB SCH ×2 (10:33→22:28)
[2021-08-19 10:57] LABS: ANISOCYTOSIS 0; HELMET CELLS 0; HOWELL-JOLLY BODIES 0; MACROCYTOSIS 0; OVALOCYTE 0; ROULEAU 0; SICKELED CELLS 0; TARGET CELLS 0; TEAR DROP CELLS 0; TOXIC GRANULATION 0
[2021-08-19] MEDS ORDERED: SODIUM ZIRCONIUM CYCLOSILICATE (LOKELMA) 5 GM PACKET PO ONE (11:15)
[2021-08-19] MEDS ORDERED: INSULIN (NOVOLOG) ASPART 100 UNITS/ML 10ML VIAL ONE (16:52)
[2021-08-19] MEDS ORDERED: WARFARIN NA 5 MG TABLET PO SCH (18:00)
[2021-08-19] MEDS: SENNOSIDES 8.6MG TABLET (FP) PO PRN (22:29)
[2021-08-19] MEDS: ATORVASTATIN CA 40 MG TABLET (FP) PO SCH (22:30)
[2021-08-19] MEDS: LETROZOLE 2.5 MG TABLET (FP) PO SCH (22:30)
[2021-08-20] MEDS: INSULIN SLIDING SCALE (NOVOLOG) 1 VIAL SQ SCH ×4 (05:59→21:39)
[2021-08-20 08:04] LABS: BLOOD UREA NITROGEN 17.9 mg/dL (7-18); CALCIUM 8.7 mg/dL (8.5-10.1)
[2021-08-20 08:05] LABS: ALBUMIN 2.3 g/dl (3.4-5.0)
[2021-08-20 08:07] LABS: CREATININE 0.5 mg/dL (0.55-1.3)
[2021-08-20 08:09] LABS: BILIRUBIN,TOTAL 1.9 mg/dL (0.2-1); TOT PROT 5.5 g/dl (6.4-8.2)
[2021-08-20 08:31] LABS: HEMATOCRIT 35.5 % (32.4-45.2); MCH 30.7 pg (25.7-33.7); MCHC 33.8 g/dl (32.0-36.0); MEAN CELL VOLUME 90.7 fl (80-96); MEAN PLT VOLUME 7.6 fl (7.5-11.1); PLATELET COUNT 566 10^3/uL (134-434); RBC 3.91 M/mm3 (3.60-5.2); RDW 14.1 % (11.6-15.6)
[2021-08-20] MEDS: APIXABAN 5 MG TABLET PO SCH (09:08)
[2021-08-20] MEDS: METOPROLOL TARTRATE 50 MG TABLET (FP) PO SCH ×2 (09:09→21:38)
[2021-08-20] MEDS: VANCOMYCIN/WATER 1250 MG 1,250 MG/250 ML BAG IVPB SCH ×2 (09:09→22:51)
[2021-08-20] MEDS: oxyCODONE HCL 10 MG SUSTAINED ACTING TABLET PO SCH ×2 (09:09→21:38)
[2021-08-20] MEDS: POLYETHYLENE GLYCOL (HEALTHYLAX) 3350 17 GM PACKET PO SCH (09:09)
[2021-08-20] MEDS: NYSTATIN POWDER 100,000 UNITS/GM - 15 GM TOPICAL POWDER TP SCH ×2 (09:10→21:40)
[2021-08-20 11:45] LABS: ANISOCYTOSIS 2+; MACROCYTOSIS 0; OVALOCYTE 1+
[2021-08-20] MEDS: ATORVASTATIN CA 40 MG TABLET (FP) PO SCH (21:38)
[2021-08-20] MEDS: LETROZOLE 2.5 MG TABLET (FP) PO SCH (21:39)
[2021-08-21] MEDS: INSULIN SLIDING SCALE (NOVOLOG) 1 VIAL SQ SCH ×4 (06:13→21:43)
[2021-08-21] MEDS ORDERED: DEXTROSE 50%-WATER - 25 GM/50 ML VIAL IVPUSH ONE (06:17)
[2021-08-21] MEDS: POLYETHYLENE GLYCOL (HEALTHYLAX) 3350 17 GM PACKET PO SCH (10:18)
[2021-08-21] MEDS: METOPROLOL TARTRATE 50 MG TABLET (FP) PO SCH ×2 (10:18→21:33)
[2021-08-21] MEDS: oxyCODONE HCL 10 MG SUSTAINED ACTING TABLET PO SCH ×2 (10:18→21:20)
[2021-08-21] MEDS: VANCOMYCIN/WATER 1250 MG 1,250 MG/250 ML BAG IVPB SCH ×2 (10:18→21:20)
[2021-08-21] MEDS: NYSTATIN POWDER 100,000 UNITS/GM - 15 GM TOPICAL POWDER TP SCH ×2 (10:19→21:34)
[2021-08-21 11:22] LABS: HEMATOCRIT 37.6 % (32.4-45.2); HEMOGLOBIN 12.1 GM/dL (10.7-15.3); MCH 29.3 pg (25.7-33.7); MCHC 32.3 g/dl (32.0-36.0); MEAN CELL VOLUME 90.8 fl (80-96); MEAN PLT VOLUME 7.8 fl (7.5-11.1); PLATELET COUNT 584 10^3/uL (134-434); RBC 4.14 M/mm3 (3.60-5.2); RDW 14.2 % (11.6-15.6); WHITE BLOOD COUNT 12.4 K/mm3 (4.0-10.0)
[2021-08-21 11:49] LABS: CALCIUM 8.5 mg/dL (8.5-10.1)
[2021-08-21 11:50] LABS: ALBUMIN 2.1 g/dl (3.4-5.0); BLOOD UREA NITROGEN 17.4 mg/dL (7-18)
[2021-08-21 11:58] LABS: CREATININE 0.5 mg/dL (0.55-1.3)
[2021-08-21 11:59] LABS: BILIRUBIN,TOTAL 1.2 mg/dL (0.2-1); TOT PROT 5.2 g/dl (6.4-8.2)
[2021-08-21] MEDS: ATORVASTATIN CA 40 MG TABLET (FP) PO SCH (21:20)
[2021-08-21] MEDS: SENNOSIDES 8.6MG TABLET (FP) PO PRN (21:20)
[2021-08-21] MEDS: LETROZOLE 2.5 MG TABLET (FP) PO SCH (21:33)
[2021-08-21 22:13] VITALS: BMI 59.9
[2021-08-22] MEDS: INSULIN SLIDING SCALE (NOVOLOG) 1 VIAL SQ SCH ×4 (06:28→21:23)
[2021-08-22 07:18] LABS: BASO % 0.7 % (0-2.0); EOS % 3.1 % (0-4.5); HEMATOCRIT 38.1 % (32.4-45.2); HEMOGLOBIN 12.7 GM/dL (10.7-15.3); LYMPH % 17.3 % (8-40); MCH 30.3 pg (25.7-33.7); MCHC 33.4 g/dl (32.0-36.0); MEAN CELL VOLUME 90.6 fl (80-96); MEAN PLT VOLUME 7.4 fl (7.5-11.1); MONO % 15.5 % (3.8-10.2); NEUT % 63.4 % (42.8-82.8); PLATELET COUNT 577 10^3/uL (134-434); RDW 13.9 % (11.6-15.6); WHITE BLOOD COUNT 11.9 K/mm3 (4.0-10.0)
[2021-08-22 07:56] LABS: CALCIUM 8.8 mg/dL (8.5-10.1)
[2021-08-22 07:57] LABS: ALBUMIN 2.1 g/dl (3.4-5.0); BLOOD UREA NITROGEN 18.1 mg/dL (7-18); MAGNESIUM 2.2 mg/dL (1.8-2.4)
[2021-08-22 08:00] LABS: CREATININE 0.5 mg/dL (0.55-1.3)
[2021-08-22 08:01] LABS: BILIRUBIN,TOTAL 1.5 mg/dL (0.2-1); TOT PROT 5.6 g/dl (6.4-8.2)
[2021-08-22] MEDS: VANCOMYCIN/WATER 1250 MG 1,250 MG/250 ML BAG IVPB SCH ×2 (09:00→21:16)
[2021-08-22] MEDS: METOPROLOL TARTRATE 50 MG TABLET (FP) PO SCH ×2 (09:00→21:16)
[2021-08-22] MEDS: POLYETHYLENE GLYCOL (HEALTHYLAX) 3350 17 GM PACKET PO SCH (09:00)
[2021-08-22] MEDS: oxyCODONE HCL 10 MG SUSTAINED ACTING TABLET PO SCH ×2 (09:00→21:16)
[2021-08-22] MEDS: AMINO ACIDS/PROTEIN HYDROLYS 30 ML LIQUID.PKT PO SCH (09:00)
[2021-08-22] MEDS: NYSTATIN POWDER 100,000 UNITS/GM - 15 GM TOPICAL POWDER TP SCH ×2 (09:02→21:17)
[2021-08-22] MEDS: ATORVASTATIN CA 40 MG TABLET (FP) PO SCH (21:16)
[2021-08-22] MEDS: LETROZOLE 2.5 MG TABLET (FP) PO SCH (21:23)
[2021-08-23] MEDS: INSULIN SLIDING SCALE (NOVOLOG) 1 VIAL SQ SCH ×4 (06:39→21:40)
[2021-08-23 07:47] LABS: CALCIUM 8.7 mg/dL (8.5-10.1)
[2021-08-23 07:48] LABS: ALBUMIN 2.1 g/dl (3.4-5.0); BLOOD UREA NITROGEN 19.9 mg/dL (7-18)
[2021-08-23 07:51] LABS: CREATININE 0.5 mg/dL (0.55-1.3)
[2021-08-23 07:52] LABS: BILIRUBIN,TOTAL 1.6 mg/dL (0.2-1)
[2021-08-23 07:55] LABS: TOT PROT 5.4 g/dl (6.4-8.2)
[2021-08-23 08:33] LABS: BASO % 1.2 % (0-2.0); EOS % 2.7 % (0-4.5); HEMATOCRIT 38.2 % (32.4-45.2); HEMOGLOBIN 12.8 GM/dL (10.7-15.3); LYMPH % 17.4 % (8-40); MCH 30.5 pg (25.7-33.7); MCHC 33.5 g/dl (32.0-36.0); MEAN CELL VOLUME 90.9 fl (80-96); MEAN PLT VOLUME 7.5 fl (7.5-11.1); MONO % 14.8 % (3.8-10.2); NEUT % 63.9 % (42.8-82.8); PLATELET COUNT 519 10^3/uL (134-434); WHITE BLOOD COUNT 11.4 K/mm3 (4.0-10.0)
[2021-08-23] MEDS: APIXABAN 5 MG TABLET PO SCH ×2 (09:46→21:28)
[2021-08-23] MEDS: AMINO ACIDS/PROTEIN HYDROLYS 30 ML LIQUID.PKT PO SCH (09:46)
[2021-08-23] MEDS: oxyCODONE HCL 10 MG SUSTAINED ACTING TABLET PO SCH ×2 (09:46→21:29)
[2021-08-23] MEDS: METOPROLOL TARTRATE 50 MG TABLET (FP) PO SCH ×2 (09:46→21:28)
[2021-08-23] MEDS: VANCOMYCIN/WATER 1250 MG 1,250 MG/250 ML BAG IVPB SCH ×2 (09:46→21:29)
[2021-08-23] MEDS: POLYETHYLENE GLYCOL (HEALTHYLAX) 3350 17 GM PACKET PO SCH (09:46)
[2021-08-23] MEDS: NYSTATIN POWDER 100,000 UNITS/GM - 15 GM TOPICAL POWDER TP SCH ×2 (09:47→21:29)
[2021-08-23 13:33] LABS: BILIRUBIN,DIRECT 0.8 mg/dL (0.0-0.2)
[2021-08-23] MEDS ORDERED: ACETAMINOPHEN 650 MG/20.3 ML ORAL SOLUTION (CUPS) PO SCH (14:00)
[2021-08-23] MEDS ORDERED: ACETAMINOPHEN 1000 MG/100 ML BAG IVPB SCH (14:00)
[2021-08-23] MEDS: ACETAMINOPHEN 500 MG TABLET (FP) PO SCH ×2 (15:43→21:28)
[2021-08-23] MEDS: ATORVASTATIN CA 40 MG TABLET (FP) PO SCH (21:28)
[2021-08-23] MEDS: LETROZOLE 2.5 MG TABLET (FP) PO SCH (21:29)
[2021-08-24] MEDS: ACETAMINOPHEN 500 MG TABLET (FP) PO SCH ×2 (03:16→09:07)
[2021-08-24] MEDS: INSULIN SLIDING SCALE (NOVOLOG) 1 VIAL SQ SCH (06:01)
[2021-08-24 07:51] VITALS: PULSE 73
[2021-08-24 08:14] LABS: BASO % 1.3 % (0-2.0); EOS % 1.5 % (0-4.5); HEMATOCRIT 37.8 % (32.4-45.2); HEMOGLOBIN 12.8 GM/dL (10.7-15.3); LYMPH % 14.4 % (8-40); MCH 30.6 pg (25.7-33.7); MCHC 33.8 g/dl (32.0-36.0); MEAN CELL VOLUME 90.7 fl (80-96); MONO % 14.1 % (3.8-10.2); NEUT % 68.7 % (42.8-82.8); PLATELET COUNT 569 10^3/uL (134-434); RBC 4.16 M/mm3 (3.60-5.2); RDW 14.2 % (11.6-15.6); WHITE BLOOD COUNT 10.8 K/mm3 (4.0-10.0)
[2021-08-24 08:33] LABS: BLOOD UREA NITROGEN 17.9 mg/dL (7-18); CALCIUM 8.8 mg/dL (8.5-10.1); MAGNESIUM 2.3 mg/dL (1.8-2.4)
[2021-08-24 08:35] LABS: CREATININE 0.4 mg/dL (0.55-1.3); PHOSPHOROUS 3.9 mg/dL (2.5-4.9)
[2021-08-24 08:37] LABS: BILIRUBIN,TOTAL 1.6 mg/dL (0.2-1); TOT PROT 5.6 g/dl (6.4-8.2)
[2021-08-24] MEDS: AMINO ACIDS/PROTEIN HYDROLYS 30 ML LIQUID.PKT PO SCH (09:07)
[2021-08-24 09:24] VITALS: BP 161/70; TEMP 97.8
[2021-08-24] MEDS: METOPROLOL TARTRATE 50 MG TABLET (FP) PO SCH (09:57)
[2021-08-24] MEDS: oxyCODONE HCL 10 MG SUSTAINED ACTING TABLET PO SCH (09:57)
[2021-08-24] MEDS: APIXABAN 5 MG TABLET PO SCH (09:59)
[2021-08-24] MEDS: POLYETHYLENE GLYCOL (HEALTHYLAX) 3350 17 GM PACKET PO SCH (10:00)
[2021-08-24] MEDS: VANCOMYCIN/WATER 1250 MG 1,250 MG/250 ML BAG IVPB SCH ×2 (10:00→10:12)
[2021-08-24] MEDS: NYSTATIN POWDER 100,000 UNITS/GM - 15 GM TOPICAL POWDER TP SCH (10:00)
[2021-08-24] MEDS ORDERED: LACTULOSE 20 GM/30 ML UDC (FOR ORAL USE ONLY) PO PRN (10:19)
[2021-08-24] MEDS ORDERED: SENNOSIDES 8.6MG TABLET (FP) PO SCH (10:30)
== END 2021-08-24 10:58 | disposition short-term general hospital (02) | DRG 183 ==
LOC: JER 14:34 → JERBED 22:47 → J4W 08-15 02:27
PROVIDERS: ADMIT Internal Medicine; ATTEND Internal Medicine
DX: S22.42XA Multiple fractures of ribs, left side, initial encounter for closed fracture (principal); A41.81 Sepsis due to Enterococcus; R65.20 Severe sepsis without septic shock; S42.292A Other displaced fracture of upper end of left humerus, initial encounter for closed fracture; S42.291A Other displaced fracture of upper end of right humerus, initial encounter for closed fracture; I50.32 Chronic diastolic (congestive) heart failure; I82.401 Acute embolism and thrombosis of unspecified deep veins of right lower extremity; N17.9 Acute kidney failure, unspecified; E87.2 Acidosis; I24.8 Other forms of acute ischemic heart disease; Z68.43 Body mass index [BMI] 50.0-59.9, adult; E66.01 Morbid (severe) obesity due to excess calories; W19.XXXA Unspecified fall, initial encounter; Y93.9 Activity, unspecified; Y92.89 Other specified places as the place of occurrence of the external cause; Y99.9 Unspecified external cause status; I10 Essential (primary) hypertension; K59.00 Constipation, unspecified; I48.91 Unspecified atrial fibrillation; E78.5 Hyperlipidemia, unspecified; E11.65 Type 2 diabetes mellitus with hyperglycemia; D72.829 Elevated white blood cell count, unspecified
CPT/HCPCS: 0241U-QW; 36415; 70450-TC; 70486-TC; 71045-TC-FY; 71250-TC; 72125-TC; 72128-TC; 72170-TC-FY; 73030-TC-LT-FY; 73030-TC-RT-FY; 73502-TC-RT-FY; 73562-TC-RT-FY; 73610-TC-RT-FY; 73630-TC-RT-FY; 73700-TC-RT; 74176-TC; 76882-TC-RT-FY; 80048; 80053; 80061; 81003; 82248; 82550; 82553; 82803; 82962; 83036; 83605; 83735; 84100; 84443; 84484; 85025; 85027; 85610; 85730; 86900; 87040; 87086; 87186; 93005; 93010; 93306-TC; 93971-TC; 94010; 99291; 99292; C9803-CS; E0186; G0480; J1644; U0003; U0005

== ENCOUNTER 2023-01-24 14:29 | Emergency (ER) | payer OTHER ==
[2023-01-24 14:41] VITALS: BP 131/51; PULSE 68; RESP 18; TEMP 97.9; BMI 33.3
[2023-01-24] MEDS ORDERED: diazePAM 2 MG TABLET PO ONE (15:18)
[2023-01-24] MEDS ORDERED: LIDOCAINE 5% TOPICAL PATCH TP ONE (15:18)
[2023-01-24] MEDS ORDERED: diazePAM 2 MG TABLET ONE (15:20)
[2023-01-24] MEDS ORDERED: LIDOCAINE 4% PATCH TP ONE (15:20)
[2023-01-24] MEDS ORDERED: LIDOCAINE PATCH REMOVAL MC SCH (22:00)
== END 2023-01-24 17:49 | disposition home or self-care (01) ==
LOC: JER 14:29
DX: M54.50 Low back pain, unspecified (principal); S32.030A Wedge compression fracture of third lumbar vertebra, initial encounter for closed fracture; H10.31 Unspecified acute conjunctivitis, right eye; S32.040A Wedge compression fracture of fourth lumbar vertebra, initial encounter for closed fracture; X58.XXXA Exposure to other specified factors, initial encounter
CPT/HCPCS: 72100-TC-FY; 99283-25

== ENCOUNTER 2023-08-20 10:16 | Inpatient (IN) | payer OTHER ==
[2023-08-20 12:10] LABS: POTASSIUM 4.8 mmol/L (3.5-5.1)
[2023-08-20 12:14] LABS: ALBUMIN 2.9 g/dl (3.4-5.0); BLOOD UREA NITROGEN 24.2 mg/dL (7-18); CALCIUM 9.3 mg/dL (8.5-10.1)
[2023-08-20 12:17] LABS: CREATININE 0.9 mg/dL (0.55-1.3)
[2023-08-20 12:19] LABS: TOT PROT 7.2 g/dl (6.4-8.2)
[2023-08-20] MEDS: LACTATED RINGERS SOLUTION 1,000 ML/1,000 ML INFUS.BAG IV SCH (15:00)
[2023-08-20] MEDS ORDERED: DIPHTH,PERTUSS(ACELL),TET 0.5 ML DISP.SYRIN IM ONE ×2 (18:05)
[2023-08-20] MEDS: DIPHTH,PERTUSS(ACELL),TET 0.5 ML DISP.SYRIN IM ONE (18:26)
[2023-08-20 18:50] LABS: BASO % 0.3 % (0-2.0); EOS % 0.1 % (0-4.5); HEMOGLOBIN 13.8 GM/dL (10.7-15.3); LYMPH % 11.8 % (8-40); MCHC 33.7 g/dl (32.0-36.0); MEAN CELL VOLUME 89.2 fl (80-96); MEAN PLT VOLUME 7.2 fl (7.5-11.1); MONO % 14.8 % (3.8-10.2); PLATELET COUNT 331 10^3/uL (134-434); RDW 14.9 % (11.6-15.6); WHITE BLOOD COUNT 9.8 K/mm3 (4.0-10.0)
[2023-08-20 20:15] LABS: BLOOD UREA NITROGEN 18.8 mg/dL (7-18); CALCIUM 9.1 mg/dL (8.5-10.1); POTASSIUM 4.6 mmol/L (3.5-5.1)
[2023-08-20 20:20] LABS: CREATININE 0.6 mg/dL (0.55-1.3)
[2023-08-20] MEDS: LACTATED RINGERS SOLUTION 1000 ML INFUS.BAG IV ONE (23:58)
[2023-08-21] MEDS: LACTATED RINGERS SOLUTION 1,000 ML/1,000 ML INFUS.BAG IV SCH (02:41)
[2023-08-21 03:27] LABS: INR 3.48 (0.83-1.09); PROTHROMBIN TIME (PATIENT) 38.6 SEC (9.7-13.0)
[2023-08-21] MEDS ORDERED: traMADol HCL 50 MG TABLET PO PRN (03:32)
[2023-08-21] MEDS: MAGNESIUM CITRATE 300 ML BOTTLE PO ONE (03:48)
[2023-08-21] MEDS: METOPROLOL TARTRATE 50 MG TABLET (FP) PO ONE (04:08)
[2023-08-21 05:30] VITALS: BMI 32.9
[2023-08-21] MEDS: INSULIN ASPART SLIDING SCALE (NOVOLOG) 1 VIAL SQ SCH (07:25)
[2023-08-21 10:01] LABS: BASO % 0.7 % (0-2.0); EOS % 0.6 % (0-4.5); HEMOGLOBIN 13.1 GM/dL (10.7-15.3); MCH 29.5 pg (25.7-33.7); MCHC 32.7 g/dl (32.0-36.0); MEAN CELL VOLUME 90.2 fl (80-96); MEAN PLT VOLUME 7.3 fl (7.5-11.1); MONO % 9.3 % (3.8-10.2); NEUT % 76.4 % (42.8-82.8); PLATELET COUNT 333 10^3/uL (134-434); RBC 4.43 M/mm3 (3.60-5.2); RDW 14.8 % (11.6-15.6); WHITE BLOOD COUNT 9.2 K/mm3 (4.0-10.0)
[2023-08-21 10:06] LABS: INR 2.54 (0.83-1.09); PROTHROMBIN TIME (PATIENT) 27.9 SEC (9.7-13.0)
[2023-08-21 10:34] LABS: POTASSIUM 4.4 mmol/L (3.5-5.1)
[2023-08-21 10:54] LABS: CALCIUM 8.9 mg/dL (8.5-10.1)
[2023-08-21 10:56] LABS: ALBUMIN 2.6 g/dl (3.4-5.0); BLOOD UREA NITROGEN 14.4 mg/dL (7-18); MAGNESIUM 2.1 mg/dL (1.8-2.4)
[2023-08-21 10:58] LABS: CREATININE 0.5 mg/dL (0.55-1.3)
[2023-08-21 10:59] LABS: PHOSPHOROUS 2.6 mg/dL (2.5-4.9)
[2023-08-21 11:00] LABS: BILIRUBIN,TOTAL 1.4 mg/dL (0.2-1); TOT PROT 6.4 g/dl (6.4-8.2)
[2023-08-21] MEDS: METOPROLOL TARTRATE 50 MG TABLET (FP) PO SCH (11:19)
[2023-08-21] MEDS: POLYETHYLENE GLYCOL (HEALTHYLAX) 3350 17 GM PACKET PO SCH (11:19)
[2023-08-21] MEDS ORDERED: GANCICLOVIR OU SCH (12:00)
[2023-08-21] MEDS: TOBRA 0.3%/DEXAMETH 0.1% OPHTHALMIC SUSP 2.5 ML BTL OU SCH (14:49)
[2023-08-21] MEDS: LETROZOLE 2.5 MG TABLET (FP) PO SCH (21:42)
[2023-08-21] MEDS ORDERED: WARFARIN NA PO SCH (22:00)
[2023-08-22 09:37] LABS: HEMATOCRIT 38.1 % (32.4-45.2); HEMOGLOBIN 12.8 GM/dL (10.7-15.3); MCH 29.7 pg (25.7-33.7); MCHC 33.4 g/dl (32.0-36.0); MEAN PLT VOLUME 7.3 fl (7.5-11.1); PLATELET COUNT 334 10^3/uL (134-434); RBC 4.29 M/mm3 (3.60-5.2); RDW 14.9 % (11.6-15.6); WHITE BLOOD COUNT 8.5 K/mm3 (4.0-10.0)
[2023-08-22 09:43] LABS: INR 1.63 (0.83-1.09); PROTHROMBIN TIME (PATIENT) 18.5 SEC (9.7-13.0)
[2023-08-22 10:10] LABS: POTASSIUM 4.6 mmol/L (3.5-5.1)
[2023-08-22 10:15] LABS: BLOOD UREA NITROGEN 12.6 mg/dL (7-18); CALCIUM 8.3 mg/dL (8.5-10.1)
[2023-08-22 10:16] LABS: ALBUMIN 2.4 g/dl (3.4-5.0)
[2023-08-22 10:17] LABS: CREATININE 0.4 mg/dL (0.55-1.3)
[2023-08-22 10:19] LABS: BILIRUBIN,TOTAL 1.5 mg/dL (0.2-1); TOT PROT 5.9 g/dl (6.4-8.2)
[2023-08-22] MEDS: ACETAMINOPHEN 325 MG TABLET (FP) PO PRN (11:13)
[2023-08-22] MEDS: SILVER SULFADIAZINE 1% TOP CREAM 50 GM JAR TP SCH (11:18)
[2023-08-22] MEDS: traMADol HCL 50 MG TABLET PO PRN (11:19)
[2023-08-22] MEDS ORDERED: LACTATED RINGERS SOLUTION 1,000 ML/1,000 ML INFUS.BAG IV SCH (12:40)
[2023-08-22] MEDS: LACTATED RINGERS SOLUTION 1,000 ML/1,000 ML INFUS.BAG IV SCH (15:19)
[2023-08-22] MEDS: WARFARIN NA 5 MG TABLET PO SCH (17:12)
[2023-08-23 09:01] LABS: POTASSIUM 4.2 mmol/L (3.5-5.1)
[2023-08-23 09:03] LABS: BLOOD UREA NITROGEN 12.8 mg/dL (7-18); CALCIUM 8.4 mg/dL (8.5-10.1)
[2023-08-23 09:04] LABS: ALBUMIN 2.4 g/dl (3.4-5.0)
[2023-08-23 09:07] LABS: CREATININE 0.5 mg/dL (0.55-1.3)
[2023-08-23 09:08] LABS: BILIRUBIN,TOTAL 1.1 mg/dL (0.2-1); TOT PROT 5.8 g/dl (6.4-8.2)
[2023-08-23] MEDS: GABAPENTIN 100 MG CAPSULE PO SCH (10:18)
[2023-08-23 23:06] LABS: HCV RNA GENOTYPE 1a (.)
[2023-08-24 09:45] LABS: BASO % 1.2 % (0-2.0); EOS % 2.9 % (0-4.5); HEMATOCRIT 39.8 % (32.4-45.2); HEMOGLOBIN 13.4 GM/dL (10.7-15.3); LYMPH % 15.7 % (8-40); MCH 30.3 pg (25.7-33.7); MCHC 33.6 g/dl (32.0-36.0); MEAN CELL VOLUME 90.2 fl (80-96); MEAN PLT VOLUME 7.5 fl (7.5-11.1); MONO % 10.7 % (3.8-10.2); NEUT % 69.5 % (42.8-82.8); PLATELET COUNT 339 10^3/uL (134-434); RBC 4.41 M/mm3 (3.60-5.2); RDW 14.9 % (11.6-15.6); WHITE BLOOD COUNT 7.8 K/mm3 (4.0-10.0)
[2023-08-24 09:46] LABS: INR 1.97 (0.83-1.09); PROTHROMBIN TIME (PATIENT) 22.2 SEC (9.7-13.0)
[2023-08-24 10:21] LABS: POTASSIUM 4.5 mmol/L (3.5-5.1)
[2023-08-24 10:22] LABS: CALCIUM 8.4 mg/dL (8.5-10.1)
[2023-08-24 10:23] LABS: BLOOD UREA NITROGEN 11.8 mg/dL (7-18); MAGNESIUM 1.9 mg/dL (1.8-2.4)
[2023-08-24 10:26] LABS: CREATININE 0.4 mg/dL (0.55-1.3); PHOSPHOROUS 3.5 mg/dL (2.5-4.9)
[2023-08-25 15:22] VITALS: RESP 18
[2023-08-25 18:22] LABS: INR 1.85 (0.83-1.09); PROTHROMBIN TIME (PATIENT) 20.5 SEC (9.7-13.0)
[2023-08-25] MEDS: MULTIVITAMINS (DAILY MVI) TABLET (FP) PO SCH (18:55)
[2023-08-25] MEDS: ASCORBIC ACID 500 MG TABLET (FP) PO SCH (21:20)
[2023-08-26] MEDS: ZINC SULFATE 220 MG CAPSULE (FP) PO SCH (09:55)
[2023-08-26 11:20] LABS: INR 1.85 (0.83-1.09); PROTHROMBIN TIME (PATIENT) 20.9 SEC (9.7-13.0)
[2023-08-26 12:49] LABS: POTASSIUM 4.7 mmol/L (3.5-5.1)
[2023-08-26 12:53] LABS: CALCIUM 8.7 mg/dL (8.5-10.1)
[2023-08-26 12:54] LABS: BLOOD UREA NITROGEN 16.2 mg/dL (7-18)
[2023-08-26 12:57] LABS: CREATININE 0.5 mg/dL (0.55-1.3)
[2023-08-26 12:58] LABS: TOT PROT 5.7 g/dl (6.4-8.2)
[2023-08-26 12:59] LABS: BILIRUBIN,TOTAL 0.6 mg/dL (0.2-1)
[2023-08-26 13:26] LABS: ALBUMIN 2.4 g/dl (3.4-5.0)
[2023-08-26] MEDS: WARFARIN NA 7.5 MG TABLET PO SCH (17:19)
[2023-08-27 06:45] VITALS: PULSE 70
[2023-08-27 09:03] LABS: INR 2.12 (0.83-1.09); PROTHROMBIN TIME (PATIENT) 23.4 SEC (9.7-13.0)
[2023-08-27 15:35] VITALS: BP 131/65; TEMP 97.7
== END 2023-08-27 15:30 | DRG 683 ==
LOC: JER 10:16 → JERBED 08-21 00:55 → J5S 08-21 05:03
PROVIDERS: ADMIT Internal Medicine
DX: N17.9 Acute kidney failure, unspecified (principal); M62.82 Rhabdomyolysis; I48.91 Unspecified atrial fibrillation; Z79.01 Long term (current) use of anticoagulants; I10 Essential (primary) hypertension; E11.9 Type 2 diabetes mellitus without complications; L89.152 Pressure ulcer of sacral region, stage 2; K74.60 Unspecified cirrhosis of liver; R16.0 Hepatomegaly, not elsewhere classified
CPT/HCPCS: 36415; 70450-TC; 71045-TC-FY; 72125-TC; 72170-TC-FY; 74177-TC; 80048; 80053; 82105; 82550; 82553; 82962; 83735; 84100; 85025; 85027; 85610; 86705; 86707; 86708; 86803; 87340; 87350; 87517; 87522; 87635; 87902; 90715; 93005; 93010; 97116-GP; 97161-GP; 99285-25; Q9967

== ENCOUNTER 2023-09-27 12:02 | Inpatient (IN) | payer OTHER ==
[2023-09-27 12:50] LABS: BASO % 0.9 % (0-2.0); EOS % 2.6 % (0-4.5); HEMATOCRIT 28.8 % (32.4-45.2); HEMOGLOBIN 9.6 GM/dL (10.7-15.3); LYMPH % 18.7 % (8-40); MCH 30.1 pg (25.7-33.7); MCHC 33.2 g/dl (32.0-36.0); MEAN CELL VOLUME 90.6 fl (80-96); MEAN PLT VOLUME 7.3 fl (7.5-11.1); MONO % 8.7 % (3.8-10.2); NEUT % 69.1 % (42.8-82.8); PLATELET COUNT 407 10^3/uL (134-434); RBC 3.17 M/mm3 (3.60-5.2); RDW 15.2 % (11.6-15.6); VENOUS BASE EXCESS 0.1 mmol/L (-2-2); VENOUS O2 SATURATION 81.7 % (70-80); VENOUS PH 7.417 (7.310-7.410); WHITE BLOOD COUNT 10.5 K/mm3 (4.0-10.0)
[2023-09-27] MEDS: SODIUM CHLORIDE 1,000 ML IV SCH (12:54)
[2023-09-27 13:02] LABS: ACTIVATED PTT 88.4 SECONDS (25.2-36.5)
[2023-09-27 13:05] LABS: INR 4.44 (0.83-1.09)
[2023-09-27 13:24] LABS: EPI CELLS 1 /uL (0-25.1); HYALINE CASTS 0 /uL (0-3.1); URINE APPEARANCE CLEAR; URINE BACTERIA 0 /uL (0-1359); URINE BILIRUBIN NEGATIVE (NEGATIVE); URINE COLOR YELLOW; URINE GLUCOSE (UA) NEGATIVE (NEGATIVE); URINE KETONE NEGATIVE (NEGATIVE); URINE LEUK ESTERASE NEGATIVE (NEGATIVE); URINE NITRITE NEGATIVE (NEGATIVE); URINE PROTEIN NEGATIVE (NEGATIVE); URINE RBC 59 /uL (0-23.9); URINE UROBILINOGEN 0.2 mg/dL (0.2-1.0); URINE WBC 1 /uL (0-25.8)
[2023-09-27 13:43] LABS: ALBUMIN 2.7 g/dl (3.4-5.0); BILIRUBIN,TOTAL 0.7 mg/dL (0.2-1); BLOOD UREA NITROGEN 33.4 mg/dL (7-18); CALCIUM 8.7 mg/dL (8.5-10.1); CREATININE 0.5 mg/dL (0.55-1.3); POTASSIUM 4.4 mmol/L (3.5-5.1); TOT PROT 6.1 g/dl (6.4-8.2)
[2023-09-28] MEDS: INSULIN ASPART SLIDING SCALE (NOVOLOG) 1 VIAL SQ SCH (07:34)
[2023-09-28] MEDS: TOBRAMYCIN 0.3% OPHTH SOLN 5 ML BOTTLE OD SCH (07:36)
[2023-09-28 08:19] LABS: HEMATOCRIT 24.8 % (32.4-45.2); HEMOGLOBIN 8.2 GM/dL (10.7-15.3); MCH 30.4 pg (25.7-33.7); MCHC 33.1 g/dl (32.0-36.0); MEAN CELL VOLUME 91.8 fl (80-96); MEAN PLT VOLUME 7.6 fl (7.5-11.1); PLATELET COUNT 390 10^3/uL (134-434); RBC 2.71 M/mm3 (3.60-5.2); RDW 15.5 % (11.6-15.6)
[2023-09-28 08:21] LABS: INR 2.48 (0.83-1.09); PROTHROMBIN TIME (PATIENT) 27.8 SEC (9.7-13.0)
[2023-09-28 08:34] LABS: POTASSIUM 4.4 mmol/L (3.5-5.1)
[2023-09-28 08:46] LABS: ALBUMIN 2.4 g/dl (3.4-5.0)
[2023-09-28 08:47] LABS: CALCIUM 8.6 mg/dL (8.5-10.1)
[2023-09-28 08:50] LABS: CREATININE 0.5 mg/dL (0.55-1.3)
[2023-09-28 08:51] LABS: BILIRUBIN,TOTAL 0.7 mg/dL (0.2-1); TOT PROT 5.4 g/dl (6.4-8.2)
[2023-09-28] MEDS: METOPROLOL TARTRATE 25 MG TABLET (FP) PO SCH (09:28)
[2023-09-28] MEDS: WARFARIN NA 7.5 MG TABLET PO SCH (17:21)
[2023-09-29 08:29] LABS: HEMATOCRIT 20.6 % (32.4-45.2); MCH 30.5 pg (25.7-33.7); MCHC 32.7 g/dl (32.0-36.0); MEAN CELL VOLUME 93.4 fl (80-96); MEAN PLT VOLUME 7.5 fl (7.5-11.1); PLATELET COUNT 408 10^3/uL (134-434); RDW 15.6 % (11.6-15.6); WHITE BLOOD COUNT 10.7 K/mm3 (4.0-10.0)
[2023-09-29 08:32] LABS: HEMOGLOBIN 6.7 GM/dL (10.7-15.3)
[2023-09-29 08:34] LABS: POTASSIUM 4.7 mmol/L (3.5-5.1)
[2023-09-29 08:38] LABS: INR 3.33 (0.83-1.09); PROTHROMBIN TIME (PATIENT) 36.3 SEC (9.7-13.0)
[2023-09-29 08:42] LABS: ALBUMIN 2.2 g/dl (3.4-5.0); BLOOD UREA NITROGEN 31.6 mg/dL (7-18)
[2023-09-29 08:44] LABS: CREATININE 0.4 mg/dL (0.55-1.3)
[2023-09-29 08:47] LABS: BILIRUBIN,TOTAL 0.5 mg/dL (0.2-1); TOT PROT 5.2 g/dl (6.4-8.2)
[2023-09-29] MEDS: PANTOPRAZOLE SODIUM 40 MG VIAL IVPUSH SCH (10:33)
[2023-09-29] MEDS: PHYTONADIONE 10 MG/1 ML AMP IVPB ONE (11:17)
[2023-09-29 15:11] LABS: HEMATOCRIT 26.8 % (32.4-45.2); HEMOGLOBIN 8.5 GM/dL (10.7-15.3); MCH 30.2 pg (25.7-33.7); MCHC 31.6 g/dl (32.0-36.0); MEAN CELL VOLUME 95.5 fl (80-96); MEAN PLT VOLUME 7.3 fl (7.5-11.1); PLATELET COUNT 358 10^3/uL (134-434); RDW 15.8 % (11.6-15.6); WHITE BLOOD COUNT 19.2 K/mm3 (4.0-10.0)
[2023-09-30] MEDS: FUROSEMIDE 40 MG/4 ML INJECTABLE VIAL IVPUSH ONE ×2 (06:23→06:26)
[2023-09-30 08:15] LABS: BASO % 1.1 % (0-2.0); EOS % 4.3 % (0-4.5); HEMATOCRIT 28.2 % (32.4-45.2); HEMOGLOBIN 9.4 GM/dL (10.7-15.3); LYMPH % 14.4 % (8-40); MCH 30.3 pg (25.7-33.7); MCHC 33.4 g/dl (32.0-36.0); MEAN CELL VOLUME 90.8 fl (80-96); MEAN PLT VOLUME 7.4 fl (7.5-11.1); MONO % 10.8 % (3.8-10.2); NEUT % 69.4 % (42.8-82.8); PLATELET COUNT 391 10^3/uL (134-434); RBC 3.11 M/mm3 (3.60-5.2); RDW 15.2 % (11.6-15.6); WHITE BLOOD COUNT 11.9 K/mm3 (4.0-10.0)
[2023-09-30 08:22] LABS: INR 1.1 (0.83-1.09); PROTHROMBIN TIME (PATIENT) 12.6 SEC (9.7-13.0)
[2023-09-30 08:35] LABS: POTASSIUM 4.4 mmol/L (3.5-5.1)
[2023-09-30 08:38] LABS: ALBUMIN 2.3 g/dl (3.4-5.0); CALCIUM 8.2 mg/dL (8.5-10.1)
[2023-09-30 08:40] LABS: BLOOD UREA NITROGEN 21.3 mg/dL (7-18)
[2023-09-30 08:42] LABS: CREATININE 0.4 mg/dL (0.55-1.3)
[2023-09-30 08:44] LABS: BILIRUBIN,TOTAL 1.3 mg/dL (0.2-1); TOT PROT 5.3 g/dl (6.4-8.2)
[2023-10-01 07:36] LABS: BASO % 1.3 % (0-2.0); EOS % 4.5 % (0-4.5); HEMATOCRIT 28.3 % (32.4-45.2); HEMOGLOBIN 9.5 GM/dL (10.7-15.3); LYMPH % 15.2 % (8-40); MCH 30.8 pg (25.7-33.7); MCHC 33.6 g/dl (32.0-36.0); MEAN CELL VOLUME 91.7 fl (80-96); MEAN PLT VOLUME 7.6 fl (7.5-11.1); MONO % 11.7 % (3.8-10.2); NEUT % 67.3 % (42.8-82.8); PLATELET COUNT 413 10^3/uL (134-434); RBC 3.09 M/mm3 (3.60-5.2); RDW 15.3 % (11.6-15.6)
[2023-10-01 07:40] LABS: INR 1.04 (0.83-1.09); POTASSIUM 4.1 mmol/L (3.5-5.1); PROTHROMBIN TIME (PATIENT) 11.9 SEC (9.7-13.0)
[2023-10-01 07:43] LABS: ALBUMIN 2.4 g/dl (3.4-5.0); CALCIUM 8.1 mg/dL (8.5-10.1)
[2023-10-01 07:45] LABS: CREATININE 0.5 mg/dL (0.55-1.3)
[2023-10-01 07:47] LABS: BILIRUBIN,TOTAL 0.9 mg/dL (0.2-1); TOT PROT 5.3 g/dl (6.4-8.2)
[2023-10-01] MEDS: PANTOPRAZOLE 40 MG TABLET PO SCH (09:36)
[2023-10-01] MEDS: ENOXAPARIN NA (PORCINE) 100 MG/1 ML DISP.SYRIN SQ SCH ×2 (09:46→15:12)
[2023-10-01] MEDS: ACETAMINOPHEN 325 MG TABLET (FP) PO PRN (22:33)
[2023-10-01] MEDS: ATORVASTATIN CA 40 MG TABLET (FP) PO SCH (22:34)
[2023-10-02 12:29] LABS: BASO % 1.1 % (0-2.0); EOS % 5.9 % (0-4.5); HEMATOCRIT 29.2 % (32.4-45.2); HEMOGLOBIN 9.8 GM/dL (10.7-15.3); LYMPH % 17.6 % (8-40); MCH 31.5 pg (25.7-33.7); MCHC 33.5 g/dl (32.0-36.0); MEAN PLT VOLUME 7.6 fl (7.5-11.1); MONO % 11.8 % (3.8-10.2); NEUT % 63.6 % (42.8-82.8); PLATELET COUNT 432 10^3/uL (134-434); WHITE BLOOD COUNT 9.2 K/mm3 (4.0-10.0)
[2023-10-04 14:19] VITALS: BMI 31.4
[2023-10-05 16:01] VITALS: BP 124/56; PULSE 68; RESP 20; TEMP 98.4
== END 2023-10-05 20:30 | DRG 812 ==
LOC: JER 12:02 → JERBED 12:46 → J4W 19:01
PROVIDERS: ADMIT Family Medicine; ATTEND Family Medicine
PROC: 30233N1 Transfusion of Nonautologous Red Blood Cells into Peripheral Vein, Percutaneous Approach (ICD-10-PCS; principal; 2023-09-29)
DX: D64.9 Anemia, unspecified (principal); K92.2 Gastrointestinal hemorrhage, unspecified; I50.32 Chronic diastolic (congestive) heart failure; G81.91 Hemiplegia, unspecified affecting right dominant side; R41.82 Altered mental status, unspecified; I10 Essential (primary) hypertension; E78.5 Hyperlipidemia, unspecified; R79.1 Abnormal coagulation profile; E66.9 Obesity, unspecified; Z68.31 Body mass index [BMI] 31.0-31.9, adult
CPT/HCPCS: 0241U-QW; 36415; 36430; 70450-TC; 70496-TC; 70498-TC; 71045-TC-FY; 80053; 80061; 81003; 82550; 82607; 82728; 82803; 82962; 83036; 83540; 83550; 84443; 84484; 85025; 85027; 85610; 85730; 86850; 86900; 86901; 86922; 87086; 93005; 93010; 97116-GP; 97162-GP; 99285-25; P9038; P9058